=== PATIENT | male | born 1965 | race Caucasian/White ===

== ENCOUNTER → 2018-06-04 | Outpatient (CLI) | payer OTHER ==
[~2018-06-04] MED LIST: AMLO5TAB4 PO; ATOR40TA78 PO; CHOL500045 PO; FENO54TA17 PO; LORA-702 PO; LOSA100T14 PO; UBID100C24 PO
[2018-06-04 16:51] LABS: ALANINE AMINOTRANSFERASE 37 U/L (12-78); ANION GAP 6 mmol/L (5-15); CALCIUM 8.9 mg/dL (8.5-10.1); CHLORIDE 110 mmol/L (98-107); CREATININE 1.33 mg/dL (0.7-1.3)
[2018-06-04 16:54] LABS: ALKALINE PHOSPHATASE 67 U/L (45-117); BILIRUBIN,TOTAL 0.3 mg/dL (0.2-1.0); TOTAL PROTEIN 7.8 g/dL (6.4-8.2)
== END | disposition home or self-care (01) ==
LOC: STAR 15:43
PROVIDERS: ATTEND Surgery
DX: Z01.818 Encounter for other preprocedural examination (principal); K43.9 Ventral hernia without obstruction or gangrene
CPT/HCPCS: 36415; 80053

== ENCOUNTER 2018-06-10 07:00 | Day surgery (SDC) | payer OTHER ==
[~2018-06-10] VITALS: Ht 180.3 cm; Wt 102.0 kg
[~2018-06-10 07:00] MED LIST changes: +BUPIVACAINE/PF-EPI 0.5% 1:200K ONE
[2018-06-10] MEDS ORDERED: LACTATED RINGERS 1,000 ML IV SCH (07:35)
[2018-06-10 07:37] VITALS: BP 147/96
[2018-06-10] MEDS ORDERED: LIDOCAINE-MPF 1%, 2ML INFIL ONE (08:00)
[2018-06-10] MEDS ORDERED: ACETAMINOPHEN 500 MG TABLET ONE (08:14)
[2018-06-10] MEDS ORDERED: GABAPENTIN 300 MG CAPSULE ONE (08:15)
[2018-06-10] MEDS ORDERED: MIDAZOLAM 1 MG/ML, 2ML ONE (08:28)
[2018-06-10] MEDS ORDERED: FENTANYL PF 250 MCG/5ML ONE (08:28)
[2018-06-10] MEDS ORDERED: ROCURONIUM 10MG/ML,5ML ONE (08:29)
[2018-06-10] MEDS ORDERED: PROPOFOL 10 MG/ML, 20ML ONE (08:29)
[2018-06-10] MEDS ORDERED: LIDOCAINE-MPF 2% ,5ML ONE (08:29)
[2018-06-10] MEDS ORDERED: CEFAZOLIN 1,000 MG ONE ×2 (08:31)
[2018-06-10] MEDS ORDERED: ONDANSETRON 2MG/ML, 2ML ONE ×2 (08:31)
[2018-06-10] MEDS ORDERED: WATER-INJECTION,STERILE 10 ML IV ONE (08:31)
[2018-06-10] MEDS ORDERED: DEXAMETHASONE 4 MG/ML, 1ML ONE ×2 (08:32)
[2018-06-10] MEDS ORDERED: EPINEPHRINE 1 MG/ML, 1ML ONE (08:33)
[2018-06-10] MEDS ORDERED: BUPIVACAINE/PF 0.25% ONE (08:33)
[2018-06-10] MEDS ORDERED: PHENYLEPHRINE 10 MG/ML ONE (08:42)
[2018-06-10] MEDS ORDERED: BUPIVACAINE/PF 0.25% INFIL ONE (09:03)
[2018-06-10] MEDS ORDERED: NEOSTIGMINE 1 MG/ML, 10ML ONE (09:34)
[2018-06-10] MEDS ORDERED: GLYCOPYRROLATE 0.4 MG/2 ML, 2ML ONE (09:35)
[2018-06-10] MEDS ORDERED: OXYcodone 5 MG/5 ML ORAL.SOL UDC ONE (10:02)
[2018-06-10] MEDS ORDERED: OXYcodone 5 MG/5 ML ORAL.SOL UDC PO PRN (16:30)
== END 2018-06-10 12:45 | disposition home or self-care (01) ==
LOC: OUT 07:00
PROVIDERS: ATTEND Surgery
DX: K43.6 Other and unspecified ventral hernia with obstruction, without gangrene (principal); E78.00 Pure hypercholesterolemia, unspecified; I10 Essential (primary) hypertension; Z72.89 Other problems related to lifestyle; G47.33 Obstructive sleep apnea (adult) (pediatric)
CPT/HCPCS: 49561; 49568; C1781; J0171; J0690; J1100; J2250; J2370; J2405; J2704; J2710; J3010; J3490; J7120